=== PATIENT | male | born 1970 ===

== ENCOUNTER 2017-11-16 17:24 | Emergency (ER) | payer SELFPAY ==
[2017-11-16 17:30] VITALS: BP 127/82; PULSE 98; RESP 16; TEMP 98; O2SAT 100
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
== END 2017-11-16 18:48 | disposition left against medical advice (07) ==
LOC: C.ER 17:24
DX: S09.90XA Unspecified injury of head, initial encounter (principal); S29.9XXA Unspecified injury of thorax, initial encounter; Y04.0XXA Assault by unarmed brawl or fight, initial encounter; Y92.410 Unspecified street and highway as the place of occurrence of the external cause

== ENCOUNTER 2018-08-07 06:34 | Day surgery (SDC) | payer OTHER ==
[2018-08-07 06:57] VITALS: PULSE 69; RESP 19; TEMP 99.1; O2SAT 100
[2018-08-07] MEDS ORDERED: Lidocaine Hydrochloride 5 ML INJ ONE (08:05)
[2018-08-07] MEDS ORDERED: Propofol 10 mg/ml Inj (20 ML) ONE (08:05)
--- NOTE | 2018-08-07 08:05 | CP.SDSHP ---
Same Day Surgery H & P - History Proposed Procedure: colonoscopy Pre-Op Diagnosis: Family h/o colon cancer/screening high risk - Previous Medical/Surgical History Comments: Denies any PMH Previous Surgical History: fractured jaw - Allergies Allergies: Allergies No Known Allergies Allergy (Verified 11/16/17 17:30) - Physical Exam Vital Signs: Vital Signs 08/07/18 06:51 Temperature 99.1 F Pulse Rate 69 Respiratory 19 Rate Blood Pressure 106/65 O2 Sat by Pulse 100 Oximetry Mental Status: Alert & Oriented x3 Neuro: WNL Heart: WNL Lungs: WNL GI: WNL - Impression Impression: Family h/o colon cancer/high risk screening Pt. Evaluated Today:Candidate for Anesthesia & Procedure: Yes - Date & Time Date: 08/07/18 Time: 08:05 Short Stay Discharge - Short Stay Discharge Admitting Diagnosis/Reason for Visit: SCREENING ENCOUNTER Disposition: HOME/ ROUTINE
[2018-08-07 09:18] VITALS: BP 109/76
== END 2018-08-07 09:18 | disposition home or self-care (01) ==
LOC: C.ENDO 06:34
PROVIDERS: ATTEND Internal Medicine Gastroenterology
DX: D12.2 Benign neoplasm of ascending colon (principal); Z12.11 Encounter for screening for malignant neoplasm of colon; Z80.0 Family history of malignant neoplasm of digestive organs; K64.8 Other hemorrhoids
CPT/HCPCS: 45380; 88305; J2704

== ENCOUNTER 2018-08-23 13:15 | Emergency (ER) | payer OTHER ==
[2018-08-23 13:39] VITALS: PULSE 62; O2SAT 98
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
[2018-08-23] MEDS ORDERED: Lidocaine 5% Patch TD STA (14:34)
[2018-08-23] MEDS ORDERED: Lidocaine 5% Patch TD ONE (14:52)
[2018-08-23 15:52] VITALS: BP 108/70; RESP 18; TEMP 98.2
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
== END 2018-08-23 16:17 | disposition home or self-care (01) ==
LOC: C.ER 13:15
DX: S16.1XXA Strain of muscle, fascia and tendon at neck level, initial encounter (principal); V49.40XA Driver injured in collision with unspecified motor vehicles in traffic accident, initial encounter; Z72.0 Tobacco use
CPT/HCPCS: 73130; 96372; 99285; J1885